=== PATIENT | female | born 1965 | race Caucasian/White ===

== ENCOUNTER 2016-06-18 09:16 | Day surgery (SDC) | payer BC ==
[~2016-06-18] VITALS: Ht 167.6 cm; Wt 74.9 kg
[~2016-06-18 09:16] MED LIST: AZATHIOPRINE50 MG PO; BUDEPRION XL300 MG PO; CALCIUM600 MG PO; CIMZIA200 MG SC; DICYCLOMINE10 MG PO; EFFEXOR XR37.5 MG/CA PO; IBUPROFEN200 M1 PO; LISINOPRIL20 MG PO; LOPID600 MG PO; METOCLOPRAMIDE10 MG PO; PREDNISONE10 MG PO; PRILOSEC 20MG20 MG PO; [UNRECOGNIZED DRUG - OTHER] IJ
[2016-06-18] MEDS ORDERED: IMURAN 50MG TAB50 MG PO (09:40)
[2016-06-18] MEDS ORDERED: CALTRATE-600 W600 MG PO (09:41)
[2016-06-18] MEDS ORDERED: DIGESTIVE PROB1 EACH PO (09:42)
[2016-06-18] MEDS ORDERED: BENTYL 20MG20 MG/TAB PO (09:42)
[2016-06-18] MEDS ORDERED: PRILOTC PO (09:43)
[2016-06-18] MEDS ORDERED: EFFEXOR-XR150 MG PO (09:44)
[2016-06-18] MEDS ORDERED: K-DUR20 MEQ PO (09:45)
[2016-06-18] MEDS ORDERED: VITAMIN B11000 MCG/M IM (09:46)
[2016-06-18] MEDS ORDERED: ZESTRIL 10MG10 MG PO (09:46)
[2016-06-18] MEDS ORDERED: MELATONIN1 MG PO (09:47)
[2016-06-18] MEDS ORDERED: HUMIRA40 MG/0.1 SQ (09:47)
[2016-06-18 10:13] VITALS: BP 120/89; PULSE 72; TEMP 98.3
[2016-06-18 11:00] VITALS: BP 121/79; PULSE 80; TEMP 97.8
[2016-06-18 11:15] VITALS: BP 121/81; PULSE 86
[2016-06-18 11:30] VITALS: BP 114/70; PULSE 86
== END 2016-06-18 12:27 | disposition home or self-care (01) ==
LOC: SDCO 09:16
DX: K50.80 Crohn's disease of both small and large intestine without complications (principal); R19.7 Diarrhea, unspecified; K56.60 Unspecified intestinal obstruction; K21.9 Gastro-esophageal reflux disease without esophagitis; F17.200 Nicotine dependence, unspecified, uncomplicated; Z79.899 Other long term (current) drug therapy; Z86.010 Personal history of colon polyps
CPT/HCPCS: J2250; J3010; J7030

== ENCOUNTER → 2016-08-06 | Outpatient (CLI) | payer BC ==
[~2016-08-06] MED LIST changes: +BENTYL 20MG20 MG/TAB PO; +CALTRATE-600 W600 MG PO; +DIGESTIVE PROB1 EACH PO; +EFFEXOR-XR150 MG PO; +HUMIRA40 MG/0.1 SQ; +IMURAN 50MG TAB50 MG PO; +K-DUR20 MEQ PO; +MELATONIN1 MG PO; +PRILOTC PO; +VITAMIN B11000 MCG/M IM; +ZESTRIL 10MG10 MG PO
[2016-08-06 17:33] LABS: PROMETHEUS COLLECTION NO RESULTS EXPECTED
== END ==
LOC: COL.LAB 16:13
PROVIDERS: Physician Assistant
DX: K50.90 Crohn's disease, unspecified, without complications (principal); R19.7 Diarrhea, unspecified; R10.9 Unspecified abdominal pain

== ENCOUNTER 2017-02-02 13:05 | Outpatient (RCR) | payer BC, OTHER ==
[~2017-02-02] VITALS: Ht 167.6 cm; Wt 75.9 kg
[2017-02-02 13:57] LABS: HEMOGLOBIN 12.4 g/dl (12.5-16.0); MEAN CELL VOLUME 95 fl (80.0-100.0); MEAN CORPUSCULAR HEMOGLOBIN 33 pg (27.0-31.0); MEAN CORPUSCULAR HGB CONC 34 g/dl (33.0-37.0); MEAN PLATELET VOLUME 9.3 fl (7.4-10.4); PLATELET COUNT 270 K/mm3 (130-400); RED BLOOD COUNT 3.82 M/mm3 (4.10-5.30); REDCELL DISTRIBUTION WIDTH-CV 13.2 % (11.5-14.5)
[2017-02-02 14:01] LABS: HEMATOCRIT 36.3 % (37.0-47.0)
[2017-02-02 14:11] LABS: ALBUMIN 4.5 gm/dL (3.5-5.0); BILIRUBIN,TOTAL 0.5 mg/dL (0.0-1.0); CALCIUM 9.6 mg/dL (8.4-10.2); CREATININE, serum 0.77 mg/dL (0.52-1.25); POTASSIUM 4.1 mmol/L (3.4-5.0); TOTAL PROTEIN 7.5 gm/dL (6.4-8.2)
[2017-02-02 14:44] VITALS: BP 110/70; PULSE 55; TEMP 98
[2017-02-02 16:16] VITALS: BP 115/72; PULSE 60; TEMP 98
== END 2017-02-03 08:46 | disposition home or self-care (01) ==
LOC: EUO 13:05
PROVIDERS: Physician Assistant
DX: K51.90 Ulcerative colitis, unspecified, without complications (principal)
CPT/HCPCS: J1200; J2930; J3380; J7050

== ENCOUNTER 2017-03-16 09:30 | Outpatient (RCR) | payer BC, OTHER ==
[2017-02-16 10:59] LABS: HEMOGLOBIN 13.1 g/dl (12.5-16.0); MEAN CELL VOLUME 95 fl (80.0-100.0); MEAN CORPUSCULAR HEMOGLOBIN 32 pg (27.0-31.0); MEAN CORPUSCULAR HGB CONC 34 g/dl (33.0-37.0); MEAN PLATELET VOLUME 9.3 fl (7.4-10.4); PLATELET COUNT 307 K/mm3 (130-400); REDCELL DISTRIBUTION WIDTH-CV 12.8 % (11.5-14.5)
[2017-02-16 11:11] LABS: ALBUMIN 4.9 gm/dL (3.5-5.0); BILIRUBIN,TOTAL 0.4 mg/dL (0.0-1.0); CALCIUM 10.4 mg/dL (8.4-10.2); CREATININE, serum 0.72 mg/dL (0.52-1.25); POTASSIUM 4.7 mmol/L (3.4-5.0)
[2017-02-16 11:25] VITALS: BP 125/73; PULSE 76; TEMP 98.6
[~2017-03-16] VITALS: Ht 167.6 cm; Wt 75.8 kg
[~2017-03-16 09:30] MED LIST changes: +ADVIL200 MG PO; -IBUPROFEN200 M1 PO; -LISINOPRIL20 MG PO; -METOCLOPRAMIDE10 MG PO; +REGLAN 10MG10 MG/TAB PO; +ZESTRIL 20MG TA20 MG PO
[2017-03-16 10:00] LABS: HEMATOCRIT 38.3 % (37.0-47.0); HEMOGLOBIN 13.1 g/dl (12.5-16.0); MEAN CELL VOLUME 94 fl (80.0-100.0); MEAN CORPUSCULAR HEMOGLOBIN 32 pg (27.0-31.0); MEAN CORPUSCULAR HGB CONC 34 g/dl (33.0-37.0); MEAN PLATELET VOLUME 9.5 fl (7.4-10.4); PLATELET COUNT 282 K/mm3 (130-400); RED BLOOD COUNT 4.07 M/mm3 (4.10-5.30); REDCELL DISTRIBUTION WIDTH-CV 13.1 % (11.5-14.5)
[2017-03-16 10:09] LABS: ALBUMIN 4.7 gm/dL (3.5-5.0); BILIRUBIN,TOTAL 0.4 mg/dL (0.0-1.0); CALCIUM 9.8 mg/dL (8.4-10.2); CREATININE, serum 0.87 mg/dL (0.52-1.25); POTASSIUM 4.6 mmol/L (3.4-5.0); TOTAL PROTEIN 7.9 gm/dL (6.4-8.2)
[2017-03-16 10:37] VITALS: BP 128/80; PULSE 72; TEMP 98.2
== END 2017-03-16 11:49 | disposition home or self-care (01) ==
LOC: EUO 09:30
PROVIDERS: Physician Assistant
DX: K51.90 Ulcerative colitis, unspecified, without complications (principal); Z79.899 Other long term (current) drug therapy
CPT/HCPCS: J1200; J2920; J2930; J3380; J7050

== ENCOUNTER 2017-05-11 09:38 | Outpatient (CLI) | payer BC, OTHER ==
[~2017-05-11] VITALS: Ht 167.6 cm; Wt 75.5 kg
[~2017-05-11 09:38] MED LIST changes: +BENTYL 10MG10 MG/CAP PO; -BUDEPRION XL300 MG PO; -DICYCLOMINE10 MG PO; +WELLBUTRIN XL300 M1 PO
[2017-05-11 10:05] VITALS: BP 116/83; PULSE 72; TEMP 98.8
[2017-05-11 10:19] LABS: HEMATOCRIT 42.8 % (37.0-47.0); HEMOGLOBIN 14.6 g/dl (12.5-16.0); MEAN CELL VOLUME 94 fl (80.0-100.0); MEAN CORPUSCULAR HEMOGLOBIN 32 pg (27.0-31.0); MEAN CORPUSCULAR HGB CONC 34 g/dl (33.0-37.0); MEAN PLATELET VOLUME 9.6 fl (7.4-10.4); PLATELET COUNT 273 K/mm3 (130-400); RED BLOOD COUNT 4.55 M/mm3 (4.10-5.30); REDCELL DISTRIBUTION WIDTH-CV 12.9 % (11.5-14.5)
[2017-05-11] MEDS ORDERED: K-DUR20 MEQ PO (10:19)
[2017-05-11] MEDS ORDERED: ULTRAM 50MG TAB50 MG PO (10:20)
[2017-05-11 10:21] LABS: ALBUMIN 4.7 gm/dL (3.5-5.0); BILIRUBIN,TOTAL 0.4 mg/dL (0.0-1.0); CALCIUM 9.8 mg/dL (8.4-10.2); CREATININE, serum 0.7 mg/dL (0.52-1.25); POTASSIUM 4.3 mmol/L (3.4-5.0); TOTAL PROTEIN 8.1 gm/dL (6.4-8.2)
[2017-05-11] MEDS ORDERED: RISPERDAL 0.5M0.5 MG PO (10:22)
== END 2017-05-11 11:50 | disposition home or self-care (01) ==
LOC: EUO 09:38
PROVIDERS: Physician Assistant
DX: K51.90 Ulcerative colitis, unspecified, without complications (principal); Z79.899 Other long term (current) drug therapy
CPT/HCPCS: J1200; J2930; J3380; J7050

== ENCOUNTER 2017-07-06 11:27 | Outpatient (CLI) | payer BC, OTHER ==
[~2017-07-06] VITALS: Ht 167.6 cm; Wt 75.0 kg
[~2017-07-06 11:27] MED LIST changes: +RISPERDAL 0.5M0.5 MG PO; +ULTRAM 50MG TAB50 MG PO
[2017-07-06 11:56] LABS: HEMATOCRIT 39.4 % (37.0-47.0); HEMOGLOBIN 13.3 g/dl (12.5-16.0); MEAN CELL VOLUME 95 fl (80.0-100.0); MEAN CORPUSCULAR HEMOGLOBIN 32 pg (27.0-31.0); MEAN CORPUSCULAR HGB CONC 34 g/dl (33.0-37.0); MEAN PLATELET VOLUME 9.8 fl (7.4-10.4); PLATELET COUNT 301 K/mm3 (130-400); RED BLOOD COUNT 4.14 M/mm3 (4.10-5.30); REDCELL DISTRIBUTION WIDTH-CV 13.3 % (11.5-14.5)
[2017-07-06 12:14] LABS: ALBUMIN 4.4 gm/dL (3.5-5.0); BILIRUBIN,TOTAL 0.6 mg/dL (0.0-1.0); CALCIUM 9.9 mg/dL (8.4-10.2); CREATININE, serum 0.71 mg/dL (0.52-1.25); POTASSIUM 3.7 mmol/L (3.4-5.0); TOTAL PROTEIN 8.6 gm/dL (6.4-8.2)
[2017-07-06] MEDS ORDERED: PRISTIQ100 MG PO (13:36)
[2017-07-06] MEDS ORDERED: COLESTID 1GM1 G PO (13:37)
[2017-07-06 13:41] VITALS: BP 133/77; PULSE 81; TEMP 98.3
== END 2017-07-06 14:06 | disposition home or self-care (01) ==
LOC: EUO 11:27
PROVIDERS: Physician Assistant
DX: K51.90 Ulcerative colitis, unspecified, without complications (principal)
CPT/HCPCS: J1200; J2920; J3380; J7050

== ENCOUNTER 2017-08-31 11:14 | Outpatient (CLI) | payer BC, OTHER ==
[~2017-08-31] VITALS: Ht 167.6 cm; Wt 79.0 kg
[~2017-08-31 11:14] MED LIST changes: +COLESTID 1GM1 G PO; +PRISTIQ100 MG PO
[2017-08-31 12:11] LABS: MEAN CELL VOLUME 93 fl (80.0-100.0); MEAN CORPUSCULAR HEMOGLOBIN 32 pg (27.0-31.0); MEAN CORPUSCULAR HGB CONC 35 g/dl (33.0-37.0); MEAN PLATELET VOLUME 9.3 fl (7.4-10.4); PLATELET COUNT 271 K/mm3 (130-400); REDCELL DISTRIBUTION WIDTH-CV 13.7 % (11.5-14.5)
[2017-08-31 12:18] LABS: HEMATOCRIT 34.5 % (37.0-47.0)
[2017-08-31 12:24] LABS: ALBUMIN 3.9 gm/dL (3.5-5.0); BILIRUBIN,TOTAL 0.3 mg/dL (0.0-1.0); CALCIUM 9.1 mg/dL (8.4-10.2); CREATININE, serum 0.64 mg/dL (0.52-1.25); POTASSIUM 3.2 mmol/L (3.4-5.0); TOTAL PROTEIN 6.7 gm/dL (6.4-8.2)
[2017-08-31] MEDS ORDERED: MAG-OX 400400 MG/TAB PO (12:48)
[2017-08-31] MEDS ORDERED: ZOFRAN ODT8 MG PO (12:49)
[2017-08-31 13:00] VITALS: BP 134/83; PULSE 65; TEMP 98.9
== END 2017-08-31 13:47 | disposition home or self-care (01) ==
LOC: EUO 11:14
PROVIDERS: Physician Assistant
DX: K51.90 Ulcerative colitis, unspecified, without complications (principal)
CPT/HCPCS: J1200; J2930; J3380; J7050

== ENCOUNTER 2017-10-07 07:11 | Day surgery (SDC) | payer BC ==
[~2017-10-07] VITALS: Ht 167.6 cm; Wt 78.1 kg
[~2017-10-07 07:11] MED LIST changes: +MAG-OX 400400 MG/TAB PO; +ZOFRAN ODT8 MG PO
[2017-10-07] MEDS ORDERED: TYLENOL 500MG500 MG PO (07:37)
[2017-10-07] MEDS ORDERED: COLESTID 1GM1 G PO (07:37)
[2017-10-07] MEDS ORDERED: ENTYVIO (07:38)
[2017-10-07 07:44] VITALS: BP 143/96; PULSE 76; TEMP 97.7
[2017-10-07 08:20] VITALS: BP 127/78; PULSE 78; TEMP 97
[2017-10-07 08:30] VITALS: BP 120/85; PULSE 81
[2017-10-07 08:45] VITALS: BP 115/89; PULSE 76
[2017-10-07 09:00] VITALS: BP 127/80; PULSE 78
[2017-10-07 10:48] VITALS: BP 127/78; PULSE 80
== END 2017-10-07 09:05 | disposition home or self-care (01) ==
LOC: SDCO 07:11
DX: K63.5 Polyp of colon (principal); K50.80 Crohn's disease of both small and large intestine without complications; R93.3 Abnormal findings on diagnostic imaging of other parts of digestive tract; Z79.899 Other long term (current) drug therapy; F17.210 Nicotine dependence, cigarettes, uncomplicated
CPT/HCPCS: J2250; J2405; J3010; J7030

== ENCOUNTER 2017-12-21 10:25 | Outpatient (CLI) | payer BC, OTHER ==
[~2017-12-21] VITALS: Ht 167.6 cm; Wt 80.0 kg
[~2017-12-21 10:25] MED LIST changes: +ENTOCORT EC3 MG PO; +ENTYVIO IV; +TYLENOL 500MG500 MG PO
[2017-12-21 10:53] VITALS: BP 159/88; PULSE 63; TEMP 98.2
[2017-12-21 10:59] LABS: HEMATOCRIT 39.7 % (37.0-47.0); HEMOGLOBIN 13.3 g/dl (12.5-16.0); MEAN CELL VOLUME 95 fl (80.0-100.0); MEAN CORPUSCULAR HEMOGLOBIN 32 pg (27.0-31.0); MEAN CORPUSCULAR HGB CONC 34 g/dl (33.0-37.0); MEAN PLATELET VOLUME 9.3 fl (7.4-10.4); PLATELET COUNT 297 K/mm3 (130-400); RED BLOOD COUNT 4.19 M/mm3 (4.10-5.30); REDCELL DISTRIBUTION WIDTH-CV 13.2 % (11.5-14.5)
[2017-12-21 11:16] LABS: ALBUMIN 4.5 gm/dL (3.5-5.0); BILIRUBIN,TOTAL 0.6 mg/dL (0.0-1.0); CALCIUM 9.6 mg/dL (8.4-10.2); CREATININE, serum 0.67 mg/dL (0.52-1.25); POTASSIUM 3.9 mmol/L (3.4-5.0); TOTAL PROTEIN 7.8 gm/dL (6.4-8.2)
[2017-12-21 12:05] VITALS: BP 168/88; PULSE 90
[2017-12-21 12:15] VITALS: BP 164/89; PULSE 64
[2017-12-21 12:25] VITALS: BP 157/88; PULSE 69
[2017-12-21 12:35] VITALS: BP 158/86; PULSE 67
== END 2017-12-21 13:00 | disposition home or self-care (01) ==
LOC: EUO 10:25
PROVIDERS: Physician Assistant
DX: K51.90 Ulcerative colitis, unspecified, without complications (principal); Z79.899 Other long term (current) drug therapy
CPT/HCPCS: J1200; J2920; J3380; J7050

== ENCOUNTER 2018-02-15 11:02 | Outpatient (CLI) | payer BC, OTHER ==
[~2018-02-15] VITALS: Ht 167.6 cm; Wt 80.0 kg
[2018-02-15 11:32] LABS: HEMATOCRIT 40.6 % (37.0-47.0); HEMOGLOBIN 13.8 g/dl (12.5-16.0); MEAN CELL VOLUME 93 fl (80.0-100.0); MEAN CORPUSCULAR HEMOGLOBIN 31 pg (27.0-31.0); MEAN CORPUSCULAR HGB CONC 34 g/dl (33.0-37.0); MEAN PLATELET VOLUME 9.5 fl (7.4-10.4); PLATELET COUNT 327 K/mm3 (130-400); RED BLOOD COUNT 4.39 M/mm3 (4.10-5.30); REDCELL DISTRIBUTION WIDTH-CV 12.9 % (11.5-14.5)
[2018-02-15 11:42] LABS: ALBUMIN 4.6 gm/dL (3.5-5.0); BILIRUBIN,TOTAL 0.6 mg/dL (0.0-1.0); CALCIUM 9.8 mg/dL (8.4-10.2); CREATININE, serum 0.75 mg/dL (0.52-1.25); POTASSIUM 3.9 mmol/L (3.4-5.0)
[2018-02-15 13:09] VITALS: BP 149/93; PULSE 68; TEMP 98.1
[2018-02-15 13:20] VITALS: BP 144/69; PULSE 74
[2018-02-15 13:30] VITALS: BP 143/73; PULSE 82
[2018-02-15 13:40] VITALS: BP 136/71; PULSE 86
== END 2018-02-15 15:06 | disposition home or self-care (01) ==
LOC: EUO 11:02
PROVIDERS: Physician Assistant
DX: K51.90 Ulcerative colitis, unspecified, without complications (principal); Z79.899 Other long term (current) drug therapy
CPT/HCPCS: J1200; J2920; J3380; J7050

== ENCOUNTER 2018-04-12 12:43 | Outpatient (CLI) | payer BC, OTHER ==
[~2018-04-12] VITALS: Ht 167.6 cm; Wt 81.1 kg
[2018-04-12 13:08] LABS: HEMATOCRIT 37.6 % (37.0-47.0); HEMOGLOBIN 12.8 g/dl (12.5-16.0); MEAN CELL VOLUME 93 fl (80.0-100.0); MEAN CORPUSCULAR HEMOGLOBIN 32 pg (27.0-31.0); MEAN CORPUSCULAR HGB CONC 34 g/dl (33.0-37.0); MEAN PLATELET VOLUME 9.5 fl (7.4-10.4); PLATELET COUNT 283 K/mm3 (130-400); RED BLOOD COUNT 4.06 M/mm3 (4.10-5.30); REDCELL DISTRIBUTION WIDTH-CV 13.2 % (11.5-14.5)
[2018-04-12 13:19] LABS: ALBUMIN 4.2 gm/dL (3.5-5.0); BILIRUBIN,TOTAL 0.3 mg/dL (0.0-1.0); CALCIUM 9.4 mg/dL (8.4-10.2); CREATININE, serum 0.65 mg/dL (0.52-1.25); POTASSIUM 3.6 mmol/L (3.4-5.0); TOTAL PROTEIN 7.4 gm/dL (6.4-8.2)
--- NOTE | 2018-04-12 13:19 | NUR ---
Per pt report she has had hysterectomy,HCG lab cancelled.
[2018-04-12] MEDS ORDERED: REXULTI0.5 MG PO (13:30)
[2018-04-12 13:41] VITALS: BP 130/83; PULSE 73; TEMP 98.1
== END 2018-04-12 15:20 | disposition home or self-care (01) ==
LOC: EUO 12:43
PROVIDERS: Internal Medicine Gastroenterology
DX: K50.90 Crohn's disease, unspecified, without complications (principal); Z79.899 Other long term (current) drug therapy
CPT/HCPCS: J1200; J2920; J3380; J7050

== ENCOUNTER 2018-06-07 12:54 | Outpatient (CLI) | payer BC, OTHER ==
[~2018-06-07] VITALS: Ht 167.6 cm; Wt 81.7 kg
[~2018-06-07 12:54] MED LIST changes: +REXULTI0.5 MG PO
[2018-06-07 13:26] LABS: HEMATOCRIT 37.3 % (37.0-47.0); HEMOGLOBIN 12.8 g/dl (12.5-16.0); MEAN CELL VOLUME 93 fl (80.0-100.0); MEAN CORPUSCULAR HEMOGLOBIN 32 pg (27.0-31.0); MEAN CORPUSCULAR HGB CONC 34 g/dl (33.0-37.0); MEAN PLATELET VOLUME 9.5 fl (7.4-10.4); PLATELET COUNT 279 K/mm3 (130-400); RED BLOOD COUNT 4.01 M/mm3 (4.10-5.30); REDCELL DISTRIBUTION WIDTH-CV 13.2 % (11.5-14.5)
[2018-06-07 13:34] LABS: ALBUMIN 4.5 gm/dL (3.5-5.0); BILIRUBIN,TOTAL 0.5 mg/dL (0.0-1.0); CALCIUM 9.8 mg/dL (8.4-10.2); CREATININE, serum 0.69 (0.52-1.25); POTASSIUM 3.6 mmol/L (3.4-5.0); TOTAL PROTEIN 7.9 gm/dL (6.4-8.2)
[2018-06-07 14:41] VITALS: BP 112/74; PULSE 65; TEMP 98.3
== END 2018-06-07 15:23 | disposition home or self-care (01) ==
LOC: EUO 12:54
PROVIDERS: Internal Medicine Gastroenterology
DX: K51.90 Ulcerative colitis, unspecified, without complications (principal); Z79.899 Other long term (current) drug therapy
CPT/HCPCS: J1200; J2920; J3380; J7050

== ENCOUNTER 2018-08-02 13:10 | Outpatient (CLI) | payer BC, OTHER ==
[~2018-08-02] VITALS: Ht 167.6 cm; Wt 71.0 kg
[2018-08-02 13:38] LABS: HEMATOCRIT 42.4 % (37.0-47.0); HEMOGLOBIN 14.5 g/dl (12.5-16.0); MEAN CELL VOLUME 92 fl (80.0-100.0); MEAN CORPUSCULAR HEMOGLOBIN 32 pg (27.0-31.0); MEAN CORPUSCULAR HGB CONC 34 g/dl (33.0-37.0); MEAN PLATELET VOLUME 9.3 fl (7.4-10.4); PLATELET COUNT 290 K/mm3 (130-400); RED BLOOD COUNT 4.59 M/mm3 (4.10-5.30); REDCELL DISTRIBUTION WIDTH-CV 13.2 % (11.5-14.5)
[2018-08-02 13:55] LABS: ALBUMIN 4.9 gm/dL (3.5-5.0); BILIRUBIN,TOTAL 0.6 mg/dL (0.0-1.0); CREATININE, serum 0.72 (0.52-1.25); POTASSIUM 3.9 mmol/L (3.4-5.0); TOTAL PROTEIN 8.9 gm/dL (6.4-8.2)
[2018-08-02 14:11] VITALS: BP 112/79; PULSE 71; TEMP 98.9
== END 2018-08-02 15:49 | disposition home or self-care (01) ==
LOC: EUO 13:10
PROVIDERS: Internal Medicine Gastroenterology
DX: K51.90 Ulcerative colitis, unspecified, without complications (principal); Z79.899 Other long term (current) drug therapy
CPT/HCPCS: J1200; J2920; J3380; J7050

== ENCOUNTER 2018-09-27 11:14 | Outpatient (CLI) | payer BC, OTHER ==
[~2018-09-27] VITALS: Ht 167.6 cm; Wt 76.7 kg
[2018-09-27 11:45] VITALS: BP 126/76; PULSE 69; TEMP 98
[2018-09-27 12:00] LABS: ALBUMIN 4.5 gm/dL (3.5-5.0); BILIRUBIN,TOTAL 0.5 mg/dL (0.0-1.0); CALCIUM 9.6 mg/dL (8.4-10.2); CREATININE, serum 0.74 (0.52-1.25); TOTAL PROTEIN 7.8 gm/dL (6.4-8.2)
[2018-09-27] MEDS ORDERED: PRINIVIL20 MG PO (12:26)
[2018-09-27] MEDS ORDERED: PRILOSEC10 MG PO (12:27)
[2018-09-27 12:28] LABS: HEMATOCRIT 39.4 % (37.0-47.0); HEMOGLOBIN 13.5 g/dl (12.5-16.0); MEAN CELL VOLUME 94 fl (80.0-100.0); MEAN CORPUSCULAR HEMOGLOBIN 32 pg (27.0-31.0); MEAN CORPUSCULAR HGB CONC 34 g/dl (33.0-37.0); MEAN PLATELET VOLUME 9.5 fl (7.4-10.4); PLATELET COUNT 284 K/mm3 (130-400); RED BLOOD COUNT 4.19 M/mm3 (4.10-5.30); REDCELL DISTRIBUTION WIDTH-CV 12.8 % (11.5-14.5)
[2018-09-27] MEDS ORDERED: PAMELOR 25MG25 MG PO (12:31)
[2018-09-27 12:50] VITALS: BP 117/84; PULSE 69; TEMP 98
[2018-09-27 13:00] VITALS: BP 121/77; PULSE 69; TEMP 98
[2018-09-27 13:10] VITALS: BP 115/80; PULSE 67; TEMP 98
[2018-09-27 13:20] VITALS: BP 115/68; PULSE 72; TEMP 98
[2018-09-27 13:25] VITALS: BP 118/73; PULSE 72; TEMP 98
--- NOTE | 2018-09-27 13:30 | NUR ---
Patients infusion is complete at this time. Patient has no complaints or concerns. Vital signs are stable. Next appointment made at this time. Patient's at bedside to drive her home.
== END 2018-09-27 13:30 ==
LOC: EUO 11:14
PROVIDERS: Internal Medicine Gastroenterology
DX: K50.90 Crohn's disease, unspecified, without complications (principal); Z79.899 Other long term (current) drug therapy
CPT/HCPCS: J1200; J2930; J3380; J7050

== ENCOUNTER 2018-11-22 11:44 | Outpatient (CLI) | payer BC, OTHER ==
[~2018-11-22] VITALS: Ht 167.6 cm; Wt 79.0 kg
[~2018-11-22 11:44] MED LIST changes: +PAMELOR 25MG25 MG PO; +PRILOSEC10 MG PO; +PRINIVIL20 MG PO
[2018-11-22] MEDS ORDERED: ABILIFY 10MG TA10 MG PO (12:00)
[2018-11-22 12:01] LABS: HEMATOCRIT 41.2 % (37.0-47.0); HEMOGLOBIN 13.9 g/dl (12.5-16.0); MEAN CELL VOLUME 94 fl (80.0-100.0); MEAN CORPUSCULAR HEMOGLOBIN 32 pg (27.0-31.0); MEAN CORPUSCULAR HGB CONC 34 g/dl (33.0-37.0); MEAN PLATELET VOLUME 8.9 fl (7.4-10.4); PLATELET COUNT 338 K/mm3 (130-400); RED BLOOD COUNT 4.39 M/mm3 (4.10-5.30); REDCELL DISTRIBUTION WIDTH-CV 12.6 % (11.5-14.5)
[2018-11-22 12:15] LABS: ALBUMIN 4.9 gm/dL (3.5-5.0); BILIRUBIN,TOTAL 0.3 mg/dL (0.0-1.0); CALCIUM 9.7 mg/dL (8.4-10.2); CREATININE, serum 0.61 (0.52-1.25); POTASSIUM 4.1 mmol/L (3.4-5.0); TOTAL PROTEIN 8.3 gm/dL (6.4-8.2)
[2018-11-22 13:40] VITALS: BP 116/67; PULSE 80; TEMP 97.9
[2018-11-22 14:19] VITALS: BP 129/75; PULSE 72; TEMP 98.2
== END 2018-11-22 14:25 | disposition home or self-care (01) ==
LOC: EUO 11:44
PROVIDERS: Internal Medicine Gastroenterology
DX: K51.90 Ulcerative colitis, unspecified, without complications (principal)
CPT/HCPCS: J2930; J3380; J7050

== ENCOUNTER 2019-01-25 09:24 | Outpatient (CLI) | payer BC, OTHER ==
[~2019-01-25 09:24] MED LIST changes: +ABILIFY 10MG TA10 MG PO
[2019-01-25 09:51] LABS: HEMATOCRIT 40.4 % (37.0-47.0); HEMOGLOBIN 13.8 g/dl (12.5-16.0); MEAN CELL VOLUME 94 fl (80.0-100.0); MEAN CORPUSCULAR HEMOGLOBIN 32 pg (27.0-31.0); MEAN CORPUSCULAR HGB CONC 34 g/dl (33.0-37.0); PLATELET COUNT 298 K/mm3 (130-400); RED BLOOD COUNT 4.29 M/mm3 (4.10-5.30); REDCELL DISTRIBUTION WIDTH-CV 13.6 % (11.5-14.5)
[2019-01-25 10:00] LABS: ALBUMIN 4.7 gm/dL (3.5-5.0); BILIRUBIN,TOTAL 0.3 mg/dL (0.0-1.0); CALCIUM 9.5 mg/dL (8.4-10.2); CREATININE, serum 0.7 (0.52-1.25); POTASSIUM 4.1 mmol/L (3.4-5.0); TOTAL PROTEIN 8.1 gm/dL (6.4-8.2)
[2019-01-25 11:00] VITALS: BP 133/84; PULSE 71; TEMP 97.9
[2019-01-25 11:10] VITALS: BP 123/83; PULSE 69
[2019-01-25 11:20] VITALS: BP 127/78; PULSE 75
[2019-01-25 11:30] VITALS: BP 112/72; PULSE 70; TEMP 98.2
== END 2019-01-25 11:55 | disposition home or self-care (01) ==
LOC: EUO 09:24
PROVIDERS: Internal Medicine Gastroenterology
DX: K51.90 Ulcerative colitis, unspecified, without complications (principal); Z79.899 Other long term (current) drug therapy
CPT/HCPCS: J1200; J2920; J3380; J7050

== ENCOUNTER 2019-03-22 11:07 | Outpatient (CLI) | payer BC, OTHER ==
[~2019-03-22] VITALS: Ht 167.6 cm; Wt 84.8 kg
[2019-03-22 11:32] LABS: HEMATOCRIT 38.3 % (37.0-47.0); HEMOGLOBIN 13.1 g/dl (12.5-16.0); MEAN CELL VOLUME 94 fl (80.0-100.0); MEAN CORPUSCULAR HEMOGLOBIN 32 pg (27.0-31.0); MEAN CORPUSCULAR HGB CONC 34 g/dl (33.0-37.0); MEAN PLATELET VOLUME 9.1 fl (7.4-10.4); PLATELET COUNT 283 K/mm3 (130-400); RED BLOOD COUNT 4.07 M/mm3 (4.10-5.30); REDCELL DISTRIBUTION WIDTH-CV 13.5 % (11.5-14.5)
[2019-03-22 11:54] LABS: ALBUMIN 4.8 gm/dL (3.5-5.0); BILIRUBIN,TOTAL 0.4 mg/dL (0.0-1.0); CALCIUM 9.6 mg/dL (8.4-10.2); CREATININE, serum 0.67 (0.52-1.25); POTASSIUM 4.7 mmol/L (3.4-5.0); TOTAL PROTEIN 8.1 gm/dL (6.4-8.2)
[2019-03-22 12:45] VITALS: BP 123/71; PULSE 65; TEMP 98.1
[2019-03-22 13:15] VITALS: BP 119/71; PULSE 66; TEMP 98.1
== END 2019-03-22 13:50 | disposition home or self-care (01) ==
LOC: EUO 11:07
PROVIDERS: Internal Medicine Gastroenterology
DX: K51.90 Ulcerative colitis, unspecified, without complications (principal); Z79.899 Other long term (current) drug therapy
CPT/HCPCS: J1200; J2920; J3380; J7050

== ENCOUNTER 2019-07-12 11:16 | Outpatient (CLI) | payer BC, OTHER ==
[~2019-07-12] VITALS: Ht 167.6 cm; Wt 87.0 kg
[~2019-07-12 11:16] MED LIST changes: +CHANTIX 1MG1 MG PO; +OSCAL 500 TAB500 MG PO; +REMERON 15M15 MG/TA1 PO; +VIIBRYD40 MG PO
[2019-07-12 11:59] LABS: HEMATOCRIT 39.2 % (37.0-47.0); HEMOGLOBIN 13.5 g/dl (12.5-16.0); MEAN CELL VOLUME 94 fl (80.0-100.0); MEAN CORPUSCULAR HEMOGLOBIN 33 pg (27.0-31.0); MEAN CORPUSCULAR HGB CONC 34 g/dl (33.0-37.0); MEAN PLATELET VOLUME 9.1 fl (7.4-10.4); PLATELET COUNT 280 K/mm3 (130-400); RED BLOOD COUNT 4.16 M/mm3 (4.10-5.30); REDCELL DISTRIBUTION WIDTH-CV 13.2 % (11.5-14.5)
[2019-07-12 12:14] LABS: ALBUMIN 4.8 gm/dL (3.5-5.0); BILIRUBIN,TOTAL 0.5 mg/dL (0.0-1.0); CALCIUM 9.8 mg/dL (8.4-10.2); CREATININE, serum 0.73 (0.52-1.25); POTASSIUM 4.6 mmol/L (3.4-5.0); TOTAL PROTEIN 8.4 gm/dL (6.4-8.2)
[2019-07-12 13:00] VITALS: BP 128/77; PULSE 77; TEMP 98.2
== END 2019-07-16 17:50 | disposition home or self-care (01) ==
LOC: EUO 11:16
PROVIDERS: Internal Medicine Gastroenterology
DX: K51.90 Ulcerative colitis, unspecified, without complications (principal); Z79.899 Other long term (current) drug therapy
CPT/HCPCS: J1200; J2920; J3380; J7050

== ENCOUNTER 2019-09-06 11:28 | Outpatient (CLI) | payer BC, OTHER ==
[2019-09-06 11:55] LABS: HEMATOCRIT 39.7 % (37.0-47.0); HEMOGLOBIN 13.9 g/dl (12.5-16.0); MEAN CELL VOLUME 94 fl (80.0-100.0); MEAN CORPUSCULAR HEMOGLOBIN 33 pg (27.0-31.0); MEAN CORPUSCULAR HGB CONC 35 g/dl (33.0-37.0); PLATELET COUNT 311 K/mm3 (130-400); RED BLOOD COUNT 4.24 M/mm3 (4.10-5.30); REDCELL DISTRIBUTION WIDTH-CV 13.7 % (11.5-14.5)
[2019-09-06] MEDS ORDERED: BRINTELLIX20 PO (12:06)
[2019-09-06 12:07] VITALS: BP 117/75; PULSE 69; TEMP 98.4
[2019-09-06] MEDS ORDERED: VRAYLAR1.5 MG PO (12:07)
[2019-09-06 12:12] LABS: ALBUMIN 4.8 gm/dL (3.5-5.0); BILIRUBIN,TOTAL 0.7 mg/dL (0.0-1.0); CALCIUM 9.8 mg/dL (8.4-10.2); CREATININE, serum 0.76 (0.52-1.25); POTASSIUM 3.9 mmol/L (3.4-5.0); TOTAL PROTEIN 8.3 gm/dL (6.4-8.2)
[2019-09-06 13:06] VITALS: BP 115/68; PULSE 65; TEMP 98.5
[2019-09-06 13:15] VITALS: BP 111/70; PULSE 69
[2019-09-06 13:30] VITALS: BP 107/69; PULSE 65
[2019-09-06 13:40] VITALS: BP 116/75; PULSE 74; TEMP 98.5
== END 2019-09-06 14:00 | disposition home or self-care (01) ==
LOC: EUO 11:28
PROVIDERS: Internal Medicine Gastroenterology
DX: K51.90 Ulcerative colitis, unspecified, without complications (principal); Z79.899 Other long term (current) drug therapy
CPT/HCPCS: J1200; J2930; J3380; J7050

== ENCOUNTER 2019-11-01 10:53 | Outpatient (CLI) | payer BC, OTHER ==
[~2019-11-01] VITALS: Ht 170.2 cm; Wt 88.2 kg
[~2019-11-01 10:53] MED LIST changes: +BRINTELLIX20 PO; +VRAYLAR1.5 MG PO
[2019-11-01 11:44] LABS: HEMOGLOBIN 13.7 g/dl (12.5-16.0); MEAN CELL VOLUME 94 fl (80.0-100.0); MEAN CORPUSCULAR HEMOGLOBIN 33 pg (27.0-31.0); MEAN CORPUSCULAR HGB CONC 35 g/dl (33.0-37.0); MEAN PLATELET VOLUME 9.4 fl (7.4-10.4); PLATELET COUNT 302 K/mm3 (130-400); RED BLOOD COUNT 4.16 M/mm3 (4.10-5.30); REDCELL DISTRIBUTION WIDTH-CV 13.3 % (11.5-14.5)
[2019-11-01 11:52] LABS: ALBUMIN 4.8 gm/dL (3.5-5.0); BILIRUBIN,TOTAL 0.5 mg/dL (0.0-1.0); CALCIUM 9.7 mg/dL (8.4-10.2); CREATININE, serum 0.79 (0.52-1.25); POTASSIUM 4.2 mmol/L (3.4-5.0); TOTAL PROTEIN 8.1 gm/dL (6.4-8.2)
[2019-11-01 11:55] VITALS: BP 104/69; PULSE 74; TEMP 98.3
[2019-11-01 12:45] VITALS: BP 113/68; PULSE 69
[2019-11-01 12:50] VITALS: BP 115/75; PULSE 66
[2019-11-01 13:00] VITALS: BP 112/71; PULSE 66
[2019-11-01 13:11] VITALS: BP 116/68; PULSE 66
== END 2019-11-01 14:56 | disposition home or self-care (01) ==
LOC: EUO 10:53
PROVIDERS: Internal Medicine Gastroenterology
DX: K51.90 Ulcerative colitis, unspecified, without complications (principal); Z79.899 Other long term (current) drug therapy
CPT/HCPCS: J1200; J2930; J3380; J7050

== ENCOUNTER 2019-11-23 08:09 | Day surgery (SDC) | payer BC ==
[~2019-11-23] VITALS: Ht 168.9 cm; Wt 84.7 kg
[2019-11-23 08:58] VITALS: BP 143/97; PULSE 110; TEMP 97.8
[2019-11-23] MEDS ORDERED: DESYREL 50MG50 MG PO (09:08)
[2019-11-23 09:45] VITALS: BP 126/77; PULSE 91
--- NOTE | 2019-11-23 09:45 | NUR ---
Patient brought back to [facility] via cart ambulated to chair with one assist. Placed on monitors, vital signs stable. Patient denies pain or nausea. Odalys RN at bedside for report, all questions answered. IV infusing to right wrist without difficulty. Warm blanket provided. Patient states she would like toast and sprite.
[2019-11-23 10:00] VITALS: BP 125/85; PULSE 87
--- NOTE | 2019-11-23 10:00 | NUR ---
Tolerated food and drink without difficulty. Denies nausea. is in parking lot. To be called upon discharge to drive Patient home. Will continue to monitor.
[2019-11-23 10:15] VITALS: BP 127/86; PULSE 93
--- NOTE | 2019-11-23 10:15 | NUR ---
Patient states she is feeling well enought to go home. MD at bedside to explain results.
--- NOTE | 2019-11-23 10:20 | NUR ---
IV removed from right hand without difficulty, intact. Discharge instructions reviewed with patient. made aware to pull up to patient entrance. Patient to get dressed at this time.
--- NOTE | 2019-11-23 10:30 | NUR ---
Patient brought down to lobby via wheel chair. to drive patient home. All belongings in hand.
== END 2019-11-23 10:30 | disposition home or self-care (01) ==
LOC: SDCO 08:09
DX: Z12.11 Encounter for screening for malignant neoplasm of colon (principal); K50.819 Crohn's disease of both small and large intestine with unspecified complications; K63.5 Polyp of colon; Z88.1 Allergy status to other antibiotic agents; Z88.8 Allergy status to other drugs, medicaments and biological substances; Z90.49 Acquired absence of other specified parts of digestive tract; F17.210 Nicotine dependence, cigarettes, uncomplicated; Z90.710 Acquired absence of both cervix and uterus; I10 Essential (primary) hypertension; J44.9 Chronic obstructive pulmonary disease, unspecified; K21.9 Gastro-esophageal reflux disease without esophagitis
CPT/HCPCS: J2704; J7030

== ENCOUNTER 2020-02-21 11:05 | Outpatient (CLI) | payer BC ==
[~2020-02-21] VITALS: Ht 170.2 cm; Wt 82.7 kg
[~2020-02-21 11:05] MED LIST changes: +CHANTIX START M1 TAB PO; +DESYREL 50MG50 MG PO
[2020-02-21 11:43] LABS: HEMATOCRIT 38.4 % (37.0-47.0); HEMOGLOBIN 13.3 g/dl (12.5-16.0); MEAN CELL VOLUME 90 fl (80.0-100.0); MEAN CORPUSCULAR HEMOGLOBIN 31 pg (27.0-31.0); MEAN CORPUSCULAR HGB CONC 35 g/dl (33.0-37.0); MEAN PLATELET VOLUME 9.5 fl (7.4-10.4); PLATELET COUNT 257 K/mm3 (130-400); RED BLOOD COUNT 4.29 M/mm3 (4.10-5.30); REDCELL DISTRIBUTION WIDTH-CV 13.1 % (11.5-14.5)
[2020-02-21 11:49] LABS: ALBUMIN 4.5 gm/dL (3.5-5.0); BILIRUBIN,TOTAL 0.6 mg/dL (0.0-1.0); CALCIUM 9.4 mg/dL (8.4-10.2); CREATININE, serum 0.82 (0.52-1.25); POTASSIUM 3.6 mmol/L (3.4-5.0); TOTAL PROTEIN 7.4 gm/dL (6.4-8.2)
[2020-02-21] MEDS ORDERED: WELLBUTRIN 100100 MG PO (12:46)
[2020-02-21 12:51] VITALS: BP 119/79; PULSE 64; TEMP 99.1
[2020-02-21 13:30] VITALS: BP 114/74; PULSE 67
[2020-02-21 13:45] VITALS: BP 111/75; PULSE 66
[2020-02-21 14:00] VITALS: BP 115/79; PULSE 66
== END 2020-02-21 14:15 | disposition home or self-care (01) ==
LOC: EUO 11:05
PROVIDERS: Internal Medicine Gastroenterology
DX: K51.90 Ulcerative colitis, unspecified, without complications (principal); Z79.899 Other long term (current) drug therapy
CPT/HCPCS: J1200; J2930; J3380; J7050

== ENCOUNTER 2020-04-17 11:10 | Outpatient (CLI) | payer BC ==
[~2020-04-17] VITALS: Ht 170.2 cm; Wt 78.7 kg
[~2020-04-17 11:10] MED LIST changes: +WELLBUTRIN 100100 MG PO
[2020-04-17 11:42] LABS: HEMATOCRIT 37.1 % (37.0-47.0); HEMOGLOBIN 12.7 g/dl (12.5-16.0); MEAN CELL VOLUME 93 fl (80.0-100.0); MEAN CORPUSCULAR HEMOGLOBIN 32 pg (27.0-31.0); MEAN CORPUSCULAR HGB CONC 34 g/dl (33.0-37.0); MEAN PLATELET VOLUME 9.2 fl (7.4-10.4); PLATELET COUNT 279 K/mm3 (130-400); RED BLOOD COUNT 3.98 M/mm3 (4.10-5.30); REDCELL DISTRIBUTION WIDTH-CV 14.6 % (11.5-14.5)
[2020-04-17 11:55] LABS: ALBUMIN 4.3 gm/dL (3.5-5.0); BILIRUBIN,TOTAL 0.4 mg/dL (0.0-1.0); CALCIUM 9.6 mg/dL (8.4-10.2); CREATININE, serum 0.69 (0.52-1.25); POTASSIUM 3.8 mmol/L (3.4-5.0); TOTAL PROTEIN 7.4 gm/dL (6.4-8.2)
[2020-04-17] MEDS ORDERED: PAMELOR 25MG25 MG PO (12:47)
[2020-04-17 12:50] VITALS: BP 110/74; PULSE 68; TEMP 98
== END 2020-04-17 13:24 | disposition home or self-care (01) ==
LOC: EUO 11:10
PROVIDERS: Internal Medicine Gastroenterology
DX: K51.90 Ulcerative colitis, unspecified, without complications (principal); Z79.899 Other long term (current) drug therapy
CPT/HCPCS: J1200; J2930; J3380; J7050

== ENCOUNTER 2020-06-12 10:56 | Outpatient (CLI) | payer BC, OTHER ==
[~2020-06-12] VITALS: Ht 170.2 cm; Wt 75.8 kg
[2020-06-12 11:49] LABS: ALBUMIN 4.6 gm/dL (3.5-5.0); BILIRUBIN,TOTAL 0.3 mg/dL (0.0-1.0); CALCIUM 9.3 mg/dL (8.4-10.2); CREATININE, serum 0.68 (0.52-1.25); POTASSIUM 4.3 mmol/L (3.4-5.0); TOTAL PROTEIN 7.9 gm/dL (6.4-8.2)
[2020-06-12 11:49] LABS: HEMOGLOBIN 12.9 g/dl (12.5-16.0); MEAN CELL VOLUME 95 fl (80.0-100.0); MEAN CORPUSCULAR HEMOGLOBIN 33 pg (27.0-31.0); MEAN CORPUSCULAR HGB CONC 35 g/dl (33.0-37.0); MEAN PLATELET VOLUME 9.5 fl (7.4-10.4); PLATELET COUNT 295 K/mm3 (130-400); RED BLOOD COUNT 3.87 M/mm3 (4.10-5.30); REDCELL DISTRIBUTION WIDTH-CV 14.4 % (11.5-14.5)
[2020-06-12 11:53] LABS: HEMATOCRIT 36.8 % (37.0-47.0)
[2020-06-12 12:23] VITALS: BP 108/73; PULSE 71; TEMP 98.5
[2020-06-12] MEDS ORDERED: WELLBUTRIN SR100 M1 PO (12:48)
[2020-06-12 13:20] VITALS: BP 108/65; PULSE 75; TEMP 98.5
== END 2020-06-12 15:21 | disposition home or self-care (01) ==
LOC: EUO 10:56
PROVIDERS: Internal Medicine Gastroenterology
DX: K50.90 Crohn's disease, unspecified, without complications (principal); Z79.899 Other long term (current) drug therapy
CPT/HCPCS: J2920; J3380; J7050

== ENCOUNTER 2020-08-07 11:03 | Outpatient (CLI) | payer BC, OTHER ==
[~2020-08-07] VITALS: Ht 170.2 cm; Wt 75.7 kg
[~2020-08-07 11:03] MED LIST changes: +WELLBUTRIN SR100 M1 PO
[2020-08-07 11:22] LABS: MEAN CELL VOLUME 98 fl (80.0-100.0); MEAN CORPUSCULAR HEMOGLOBIN 33 pg (27.0-31.0); MEAN CORPUSCULAR HGB CONC 34 g/dl (33.0-37.0); PLATELET COUNT 316 K/mm3 (130-400); RED BLOOD COUNT 3.89 M/mm3 (4.10-5.30); REDCELL DISTRIBUTION WIDTH-CV 13.5 % (11.5-14.5)
[2020-08-07 11:35] LABS: ALBUMIN 4.5 gm/dL (3.5-5.0); BILIRUBIN,TOTAL 0.3 mg/dL (0.0-1.0); CREATININE, serum 0.68 (0.52-1.25); TOTAL PROTEIN 7.8 gm/dL (6.4-8.2)
[2020-08-07 11:56] LABS: BASOPHIL 1 % (0-2); EOSINOPHIL 1 % (0-4); LYMPHOCYTE 27 % (20.0-51.0); NEUTROPHILS 63 % (42.0-75.2); PLATELET ESTIMATE NORMAL (NORMAL)
[2020-08-07 13:22] VITALS: BP 113/72; PULSE 81; TEMP 98.7
== END 2020-08-07 13:15 | disposition home or self-care (01) ==
LOC: EUO 11:03
PROVIDERS: Internal Medicine Gastroenterology
DX: K50.90 Crohn's disease, unspecified, without complications (principal); Z79.899 Other long term (current) drug therapy
CPT/HCPCS: J1200; J2930; J3380; J7050

== ENCOUNTER 2020-09-25 11:03 | Outpatient (CLI) | payer BC, OTHER ==
[~2020-09-25] VITALS: Ht 170.2 cm; Wt 75.7 kg
[2020-09-25 11:32] LABS: HEMATOCRIT 37.7 % (37.0-47.0); MEAN CELL VOLUME 96 fl (80.0-100.0); MEAN CORPUSCULAR HEMOGLOBIN 33 pg (27.0-31.0); MEAN CORPUSCULAR HGB CONC 35 g/dl (33.0-37.0); MEAN PLATELET VOLUME 9.2 fl (7.4-10.4); PLATELET COUNT 337 K/mm3 (130-400); RED BLOOD COUNT 3.91 M/mm3 (4.10-5.30)
[2020-09-25 11:44] LABS: ALBUMIN 4.9 gm/dL (3.5-5.0); BILIRUBIN,TOTAL 0.6 mg/dL (0.0-1.0); CALCIUM 9.5 mg/dL (8.4-10.2); CREATININE, serum 0.77 (0.52-1.25); POTASSIUM 3.6 mmol/L (3.4-5.0); TOTAL PROTEIN 8.2 gm/dL (6.4-8.2)
[2020-09-25 12:35] VITALS: BP 121/78; PULSE 76; TEMP 99.2
[2020-09-25 12:47] VITALS: BP 123/83; PULSE 76
[2020-09-25 12:57] VITALS: BP 126/83; PULSE 79; TEMP 99
== END 2020-09-25 13:26 | disposition home or self-care (01) ==
LOC: EUO 11:03
PROVIDERS: Internal Medicine Gastroenterology
DX: K51.90 Ulcerative colitis, unspecified, without complications (principal)
CPT/HCPCS: J1200; J2920; J3380; J7050

== ENCOUNTER 2020-11-27 11:06 | Outpatient (CLI) | payer BC, OTHER ==
[~2020-11-27] VITALS: Ht 170.2 cm; Wt 77.0 kg
[2020-11-27 11:43] LABS: HEMATOCRIT 38.1 % (37.0-47.0); HEMOGLOBIN 13.3 g/dl (12.5-16.0); MEAN CELL VOLUME 95 fl (80.0-100.0); MEAN CORPUSCULAR HEMOGLOBIN 33 pg (27.0-31.0); MEAN CORPUSCULAR HGB CONC 35 g/dl (33.0-37.0); MEAN PLATELET VOLUME 9.4 fl (7.4-10.4); PLATELET COUNT 284 K/mm3 (130-400); RED BLOOD COUNT 4.01 M/mm3 (4.10-5.30); REDCELL DISTRIBUTION WIDTH-CV 13.2 % (11.5-14.5)
[2020-11-27 12:33] LABS: BILIRUBIN,TOTAL 0.3 mg/dL (0.2-1.2); CALCIUM 9.9 mg/dL (8.4-10.2); CREATININE, serum 0.78 mg/dL (0.57-1.11); POTASSIUM 3.8 mmol/L (3.5-4.5); TOTAL PROTEIN 7.8 gm/dL (6.2-8.1)
[2020-11-27 12:36] VITALS: BP 138/91; PULSE 71; TEMP 98.5
== END 2020-11-27 15:15 | disposition home or self-care (01) ==
LOC: EUO 11:06
PROVIDERS: Internal Medicine Gastroenterology
DX: Z79.899 Other long term (current) drug therapy (principal)
CPT/HCPCS: J1200; J2930; J3380; J7050

== ENCOUNTER 2021-01-22 11:23 | Outpatient (CLI) | payer BC, OTHER ==
[~2021-01-22] VITALS: Ht 170.2 cm; Wt 76.2 kg
[2021-01-22 12:09] LABS: HEMATOCRIT 37.6 % (37.0-47.0); MEAN CELL VOLUME 94 fl (80.0-100.0); MEAN CORPUSCULAR HEMOGLOBIN 32 pg (27.0-31.0); MEAN CORPUSCULAR HGB CONC 35 g/dl (33.0-37.0); MEAN PLATELET VOLUME 8.9 fl (7.4-10.4); PLATELET COUNT 291 K/mm3 (130-400); RED BLOOD COUNT 4.02 M/mm3 (4.10-5.30); REDCELL DISTRIBUTION WIDTH-CV 13.1 % (11.5-14.5)
[2021-01-22 12:25] LABS: ALBUMIN 4.3 gm/dL (3.5-5.0); BILIRUBIN,TOTAL 0.4 mg/dL (0.2-1.2); CALCIUM 9.9 mg/dL (8.4-10.2); CREATININE, serum 0.79 mg/dL (0.57-1.11); POTASSIUM 3.8 mmol/L (3.5-4.5); TOTAL PROTEIN 7.4 gm/dL (6.2-8.1)
[2021-01-22 12:30] VITALS: BP 106/71; PULSE 72; TEMP 98.8
[2021-01-22 12:50] LABS: LYMPHOCYTE 32 % (20.0-51.0); NEUTROPHILS 63 % (42.0-75.2); PLATELET ESTIMATE NORMAL (NORMAL)
== END 2021-01-22 19:50 | disposition home or self-care (01) ==
LOC: EUO 11:23
PROVIDERS: Internal Medicine Gastroenterology
DX: Z79.899 Other long term (current) drug therapy (principal)
CPT/HCPCS: J1200; J2930; J3380; J7050

== ENCOUNTER 2021-04-09 11:18 | Outpatient (CLI) | payer BC, OTHER ==
[~2021-04-09] VITALS: Ht 170.2 cm; Wt 77.3 kg
[~2021-04-09 11:18] MED LIST changes: +CALCIUM WITH D31 CTB PO; -OSCAL 500 TAB500 MG PO
[2021-04-09 11:43] LABS: BASO % 0.6 % (0.0-2.0); EOS % 0.8 % (0.0-4.0); GRAN # 3.2 K/mm3 (1.4-6.5); GRAN % 60.4 % (42.2-75.2); HEMATOCRIT 39.3 % (37.0-47.0); HEMOGLOBIN 13.6 g/dl (12.5-16.0); LYMPH # 1.6 K/mm3 (1.2-3.4); LYMPH % 29.9 % (20.0-51.0); MEAN CELL VOLUME 96 fl (80.0-100.0); MEAN CORPUSCULAR HEMOGLOBIN 33 pg (27-31); MEAN CORPUSCULAR HGB CONC 35 g/dl (33.0-37.0); MEAN PLATELET VOLUME 8.9 fl (7.4-10.4); MONO # 0.4 K/mm3 (0.1-0.6); MONO % 8.1 % (1.7-9.3); PLATELET COUNT 321 K/mm3 (130-400); RED BLOOD COUNT 4.11 M/mm3 (4.10-5.30); REDCELL DISTRIBUTION WIDTH-CV 13.4 % (11.5-14.5)
[2021-04-09 12:10] LABS: ALBUMIN 4.7 gm/dL (3.5-5.0); BILIRUBIN,TOTAL 0.7 mg/dL (0.2-1.2); CALCIUM 9.1 mg/dL (8.4-10.2); CREATININE, serum 0.89 mg/dL (0.57-1.11); POTASSIUM 3.8 mmol/L (3.5-4.5); TOTAL PROTEIN 7.9 gm/dL (6.2-8.1)
[2021-04-09 12:24] VITALS: BP 114/73; PULSE 78; TEMP 98.6
== END 2021-04-09 13:20 ==
LOC: EUO 11:18
PROVIDERS: Internal Medicine Gastroenterology
DX: Z79.899 Other long term (current) drug therapy (principal)
CPT/HCPCS: J1200; J2920; J3380; J7050

== ENCOUNTER → 2021-06-05 | Outpatient (CLI) | payer BC, OTHER ==
[~2021-06-05] MED LIST changes: +CRANBERRY250 MG PO; +CYANOCOBAL1000 MCG/M IM; +DIGESTIVE ADVA1 EAC3 PO
== END ==
LOC: COL.RAD 07:26
DX: K50.90 Crohn's disease, unspecified, without complications (principal)
CPT/HCPCS: A9541

== ENCOUNTER 2021-07-30 10:53 | Outpatient (CLI) | payer BC, OTHER ==
[~2021-07-30] VITALS: Ht 170.2 cm; Wt 77.1 kg
[2021-07-30 11:06] VITALS: BP 132/85; PULSE 70; TEMP 98.9
[2021-07-30 11:19] LABS: HEMOGLOBIN 12.2 g/dl (12.5-16.0); MEAN CELL VOLUME 94 fl (80.0-100.0); MEAN CORPUSCULAR HEMOGLOBIN 33 pg (27-31); MEAN CORPUSCULAR HGB CONC 35 g/dl (33.0-37.0); MEAN PLATELET VOLUME 9.5 fl (7.4-10.4); PLATELET COUNT 294 K/mm3 (130-400); RED BLOOD COUNT 3.69 M/mm3 (4.10-5.30); REDCELL DISTRIBUTION WIDTH-CV 13.1 % (11.5-14.5)
[2021-07-30 11:20] LABS: HEMATOCRIT 34.6 % (37.0-47.0)
[2021-07-30] MEDS ORDERED: REGLAN 5MG T5 MG/TAB PO (11:37)
[2021-07-30 11:38] LABS: EOSINOPHIL 3 % (0-4); LYMPHOCYTE 22 % (20.0-51.0); NEUTROPHILS 67 % (42.0-75.2); PLATELET ESTIMATE NORMAL (NORMAL)
[2021-07-30] MEDS ORDERED: MACRODANTIN50 MG/CA1 PO (11:38)
[2021-07-30 11:55] LABS: ALBUMIN 4.1 gm/dL (3.5-5.0); BILIRUBIN,TOTAL 0.4 mg/dL (0.2-1.2); CALCIUM 9.1 mg/dL (8.4-10.2); CREATININE, serum 0.7 mg/dL (0.57-1.11); POTASSIUM 3.4 mmol/L (3.5-4.5); TOTAL PROTEIN 7.4 gm/dL (6.2-8.1)
== END 2021-07-30 15:25 ==
LOC: EUO 10:53
PROVIDERS: Internal Medicine Gastroenterology
DX: K50.90 Crohn's disease, unspecified, without complications (principal); K51.90 Ulcerative colitis, unspecified, without complications
CPT/HCPCS: J1200; J2920; J3380; J7050

== ENCOUNTER 2021-09-24 10:49 | Outpatient (CLI) | payer BC, OTHER ==
[~2021-09-24 10:49] MED LIST changes: +MACRODANTIN50 MG/CA1 PO; +REGLAN 5MG T5 MG/TAB PO
[2021-09-24 11:13] LABS: HEMOGLOBIN 12.7 g/dl (12.5-16.0); MEAN CELL VOLUME 93 fl (80.0-100.0); MEAN CORPUSCULAR HEMOGLOBIN 33 pg (27-31); MEAN CORPUSCULAR HGB CONC 35 g/dl (33.0-37.0); MEAN PLATELET VOLUME 9.3 fl (7.4-10.4); PLATELET COUNT 275 K/mm3 (130-400); RED BLOOD COUNT 3.91 M/mm3 (4.10-5.30); REDCELL DISTRIBUTION WIDTH-CV 13.4 % (11.5-14.5)
[2021-09-24 11:17] LABS: HEMATOCRIT 36.4 % (37.0-47.0)
[2021-09-24 11:32] LABS: ALBUMIN 4.2 gm/dL (3.5-5.0); BILIRUBIN,TOTAL 0.4 mg/dL (0.2-1.2); CALCIUM 9.3 mg/dL (8.4-10.2); CREATININE, serum 0.71 mg/dL (0.57-1.11); POTASSIUM 3.3 mmol/L (3.5-4.5); TOTAL PROTEIN 7.2 gm/dL (6.2-8.1)
[2021-09-24 11:38] VITALS: BP 114/76; PULSE 75; TEMP 98.7
[2021-09-24 11:41] LABS: LYMPHOCYTE 37 % (20.0-51.0); NEUTROPHILS 53 % (42.0-75.2); PLATELET ESTIMATE NORMAL (NORMAL)
[2021-09-24] MEDS ORDERED: VITAMIN D31000 I1 PO (11:43)
[2021-09-24] MEDS ORDERED: ZOFRAN8 MG PO (11:46)
== END 2021-09-24 13:00 | disposition home or self-care (01) ==
LOC: EUO 10:49
PROVIDERS: Internal Medicine Gastroenterology
DX: Z51.81 Encounter for therapeutic drug level monitoring (principal)
CPT/HCPCS: J1200; J2930; J3380; J7050

== ENCOUNTER 2022-05-14 09:04 | Outpatient (CLI) | payer BC, OTHER ==
[~2022-05-14] VITALS: Ht 170.2 cm; Wt 79.3 kg
[~2022-05-14 09:04] MED LIST changes: +VITAMIN D31000 I1 PO; +ZOFRAN8 MG PO
[2022-05-14 09:26] LABS: HEMATOCRIT 38.6 % (37.0-47.0); HEMOGLOBIN 13.4 g/dl (12.5-16.0); MEAN CELL VOLUME 93 fl (80.0-100.0); MEAN CORPUSCULAR HEMOGLOBIN 32 pg (27-31); MEAN CORPUSCULAR HGB CONC 35 g/dl (33.0-37.0); MEAN PLATELET VOLUME 8.7 fl (7.4-10.4); PLATELET COUNT 279 K/mm3 (130-400); RED BLOOD COUNT 4.17 M/mm3 (4.10-5.30); REDCELL DISTRIBUTION WIDTH-CV 13.3 % (11.5-14.5)
[2022-05-14 09:46] LABS: ALBUMIN 4.2 gm/dL (3.5-5.0); BILIRUBIN,TOTAL 0.4 mg/dL (0.2-1.2); CALCIUM 9.5 mg/dL (8.4-10.2); CREATININE, serum 0.84 mg/dL (0.57-1.11); POTASSIUM 4.2 mmol/L (3.5-4.5); TOTAL PROTEIN 7.3 gm/dL (6.2-8.1)
[2022-05-14 09:51] LABS: EOSINOPHIL 1 % (0-4); LYMPHOCYTE 28 % (20.0-51.0); NEUTROPHILS 68 % (42.0-75.2); PLATELET ESTIMATE NORMAL (NORMAL)
[2022-05-14 10:03] VITALS: BP 112/76; PULSE 77; TEMP 98.8
--- NOTE | 2022-05-14 11:56 | NUR ---
pt discharged at approx 1100. pt tolerated her entyvio infusion well, her vs remained wnl during the infusion and she continued to tolerate po fluids throughout. she refused taking benadryl but she did take tylenol and solumederol for her pre-meds. she ambulated independently upon discharge to her car and was free from complaints or concerns.
== END 2022-05-14 11:00 | disposition home or self-care (01) ==
LOC: EUO 09:04
PROVIDERS: Internal Medicine Gastroenterology
DX: K50.80 Crohn's disease of both small and large intestine without complications (principal)
CPT/HCPCS: J2920; J3380; J7050

== ENCOUNTER 2022-07-09 10:04 | Outpatient (CLI) | payer MEDICARE, BC ==
[~2022-07-09] VITALS: Ht 170.2 cm; Wt 80.3 kg
[2022-07-09 10:37] VITALS: BP 134/3; PULSE 73; TEMP 98.6
[2022-07-09 10:42] LABS: BASO % 0.7 % (0.0-2.0); EOS # 0.1 K/mm3 (0.0-0.7); EOS % 0.9 % (0.0-4.0); GRAN # 3.5 K/mm3 (1.4-6.5); GRAN % 63.6 % (42.2-75.2); HEMATOCRIT 41.6 % (37.0-47.0); HEMOGLOBIN 14.3 g/dl (12.5-16.0); LYMPH # 1.4 K/mm3 (1.2-3.4); LYMPH % 25.9 % (20.0-51.0); MEAN CELL VOLUME 93 fl (80.0-100.0); MEAN CORPUSCULAR HEMOGLOBIN 32 pg (27-31); MEAN CORPUSCULAR HGB CONC 34 g/dl (33.0-37.0); MEAN PLATELET VOLUME 9.2 fl (7.4-10.4); MONO # 0.5 K/mm3 (0.1-0.6); MONO % 8.5 % (1.7-9.3); PLATELET COUNT 323 K/mm3 (130-400); RED BLOOD COUNT 4.46 M/mm3 (4.10-5.30); REDCELL DISTRIBUTION WIDTH-CV 12.9 % (11.5-14.5)
[2022-07-09] MEDS ORDERED: REGLAN 10MG10 MG/TAB PO (10:45)
[2022-07-09 11:13] LABS: ALBUMIN 4.3 gm/dL (3.5-5.0); BILIRUBIN,TOTAL 0.7 mg/dL (0.2-1.2); CALCIUM 10.1 mg/dL (8.4-10.2); CREATININE, serum 0.78 mg/dL (0.57-1.11); POTASSIUM 4.2 mmol/L (3.5-4.5); TOTAL PROTEIN 7.9 gm/dL (6.2-8.1)
--- NOTE | 2022-07-09 12:11 | NUR ---
Pt tolerated infusion without issue. IV DC'd, site wrapped with coban. Pt exits dept with steady gait.
== END 2022-07-09 12:12 | disposition home or self-care (01) ==
LOC: EUO 10:04
PROVIDERS: Internal Medicine Gastroenterology
DX: K50.919 Crohn's disease, unspecified, with unspecified complications (principal); K51.90 Ulcerative colitis, unspecified, without complications; K50.80 Crohn's disease of both small and large intestine without complications
CPT/HCPCS: J1200; J2920; J3380; J7050

== ENCOUNTER 2023-02-18 09:46 | Outpatient (CLI) | payer MEDICARE, BC ==
[~2023-02-18 09:46] MED LIST changes: +PRIL40 PO
[2023-02-18 10:24] LABS: HEMATOCRIT 39.6 % (37.0-47.0); HEMOGLOBIN 13.8 g/dl (12.5-16.0); MEAN CELL VOLUME 92 fl (80.0-100.0); MEAN CORPUSCULAR HEMOGLOBIN 32 pg (27-31); MEAN CORPUSCULAR HGB CONC 35 g/dl (33.0-37.0); MEAN PLATELET VOLUME 9.2 fl (7.4-10.4); PLATELET COUNT 316 K/mm3 (130-400); REDCELL DISTRIBUTION WIDTH-CV 13.2 % (11.5-14.5)
[2023-02-18 10:39] LABS: BILIRUBIN,TOTAL 0.6 mg/dL (0.2-1.2); CALCIUM 9.8 mg/dL (8.4-10.2); CREATININE, serum 0.79 mg/dL (0.57-1.11); POTASSIUM 3.7 mmol/L (3.5-4.5); TOTAL PROTEIN 7.2 gm/dL (6.2-8.1)
[2023-02-18 11:30] VITALS: BP 122/77; PULSE 76; TEMP 98.3
== END 2023-02-18 12:12 ==
LOC: EUO 09:46
PROVIDERS: Internal Medicine Gastroenterology
DX: K50.80 Crohn's disease of both small and large intestine without complications (principal)
CPT/HCPCS: J1200; J2920; J3380; J7050

== ENCOUNTER 2023-06-10 09:29 | Outpatient (CLI) | payer MEDICARE, BC ==
[~2023-06-10] VITALS: Ht 170.2 cm; Wt 79.6 kg
[2023-06-10 09:53] VITALS: BP 107/74; PULSE 76; TEMP 98.4
[2023-06-10 09:57] LABS: BASO % 0.3 % (0.0-2.0); EOS # 0.1 K/mm3 (0.0-0.7); EOS % 0.7 % (0.0-4.0); GRAN # 5.1 K/mm3 (1.4-6.5); GRAN % 74.5 % (42.2-75.2); HEMOGLOBIN 13.3 g/dl (12.5-16.0); LYMPH # 1.3 K/mm3 (1.2-3.4); LYMPH % 19.1 % (20.0-51.0); MEAN CELL VOLUME 93 fl (80.0-100.0); MEAN CORPUSCULAR HEMOGLOBIN 33 pg (27-31); MEAN CORPUSCULAR HGB CONC 35 g/dl (33.0-37.0); MEAN PLATELET VOLUME 9.2 fl (7.4-10.4); MONO # 0.4 K/mm3 (0.1-0.6); MONO % 5.1 % (1.7-9.3); PLATELET COUNT 238 K/mm3 (130-400); RED BLOOD COUNT 4.07 M/mm3 (4.10-5.30); REDCELL DISTRIBUTION WIDTH-CV 13.1 % (11.5-14.5)
[2023-06-10 10:10] LABS: ALBUMIN 4.4 g/dL (3.5-5.0); BILIRUBIN,TOTAL 0.6 mg/dL (0.2-1.2); CALCIUM 9.7 mg/dL (8.4-10.2); CREATININE, serum 0.79 mg/dL (0.57-1.11); POTASSIUM 3.6 mEq/L (3.5-4.5); TOTAL PROTEIN 7.6 g/dl (6.2-8.1)
[2023-06-10] MEDS ORDERED: diphenhydrAMINE 50 MG/ML 1 ML VIAL IV ONE (10:30)
[2023-06-10] MEDS ORDERED: Acetaminophen 500 MG TAB PO ONE (10:30)
[2023-06-10] MEDS ORDERED: methylPREDNISolone Sod Succ 40 MG/ML VIAL IV ONE (10:30)
[2023-06-10] MEDS ORDERED: Vedolizumab 300 MG in NS 250 ML IV SCH (11:00)
--- NOTE | 2023-06-10 11:27 | NUR ---
PT TOLERATED INFUSION WELL. VS REMAINED WITHIN NORMAL LIMITS. IV DISCONTINUED AND PT AMBULATED TO [facility] UPON DISCHARGE. NEXT APPOINTMENT MADE.
== END 2023-06-10 11:36 | disposition home or self-care (01) ==
LOC: EUO 09:29
PROVIDERS: Internal Medicine Gastroenterology
DX: K50.80 Crohn's disease of both small and large intestine without complications (principal)
CPT/HCPCS: J1200; J2919; J3380; J7050

== ENCOUNTER 2023-09-30 10:01 | Outpatient (CLI) | payer MEDICARE, BC ==
[~2023-09-30 10:01] MED LIST changes: +AZATHIOPRINE100 MG PO; -IMURAN 50MG TAB50 MG PO
[2023-09-30 10:47] VITALS: BP 106/69; PULSE 75; TEMP 98.6
[2023-09-30 10:48] LABS: BASO % 0.6 % (0.0-2.0); EOS # 0.1 K/mm3 (0.0-0.7); EOS % 1.5 % (0.0-4.0); GRAN # 3.4 K/mm3 (1.4-6.5); GRAN % 64.9 % (42.2-75.2); LYMPH # 1.3 K/mm3 (1.2-3.4); LYMPH % 24.3 % (20.0-51.0); MEAN CELL VOLUME 96 fl (80.0-100.0); MEAN CORPUSCULAR HEMOGLOBIN 33 pg (27-31); MEAN CORPUSCULAR HGB CONC 34 g/dl (33.0-37.0); MEAN PLATELET VOLUME 9.3 fl (7.4-10.4); MONO # 0.4 K/mm3 (0.1-0.6); MONO % 8.5 % (1.7-9.3); PLATELET COUNT 221 K/mm3 (130-400); RED BLOOD COUNT 3.64 M/mm3 (4.10-5.30); REDCELL DISTRIBUTION WIDTH-CV 13.2 % (11.5-14.5)
[2023-09-30 10:51] LABS: HEMATOCRIT 34.9 % (37.0-47.0)
[2023-09-30] MEDS ORDERED: PRIL40 PO (10:58)
[2023-09-30 11:04] LABS: ALBUMIN 4.1 g/dL (3.5-5.0); BILIRUBIN,TOTAL 0.2 mg/dL (0.2-1.2); CALCIUM 9.1 mg/dL (8.4-10.2); CREATININE, serum 0.81 mg/dL (0.57-1.11); POTASSIUM 3.3 mEq/L (3.5-4.5); TOTAL PROTEIN 6.7 g/dl (6.2-8.1)
[2023-09-30] MEDS ORDERED: methylPREDNISolone Sod Succ 40 MG/ML VIAL IV ONE (11:15)
[2023-09-30] MEDS ORDERED: diphenhydrAMINE 50 MG/ML 1 ML VIAL IV ONE (11:15)
[2023-09-30] MEDS ORDERED: Acetaminophen 500 MG TAB PO ONE (11:15)
[2023-09-30] MEDS ORDERED: Vedolizumab 300 MG in NS 250 ML IV SCH (11:45)
--- NOTE | 2023-09-30 12:30 | NUR ---
Pt tolerated infusion without issue. IV DC'd, site wrapped with coban. Pt exits dept with steady gait. Free of complaints at discharge.
== END 2023-09-30 12:30 | disposition home or self-care (01) ==
LOC: EUO 10:01
PROVIDERS: Internal Medicine Gastroenterology
DX: K50.80 Crohn's disease of both small and large intestine without complications (principal)
CPT/HCPCS: J1200; J2919; J3380; J7050

== ENCOUNTER 2023-11-25 10:04 | Outpatient (CLI) | payer MEDICARE, BC ==
[~2023-11-25] VITALS: Ht 170.2 cm; Wt 74.4 kg
[2023-11-25 10:29] VITALS: BP 113/79; PULSE 79; TEMP 99
[2023-11-25 10:32] LABS: BASO % 0.7 % (0.0-2.0); EOS # 0.1 K/mm3 (0.0-0.7); EOS % 0.9 % (0.0-4.0); GRAN # 4.2 K/mm3 (1.4-6.5); GRAN % 73.3 % (42.2-75.2); HEMOGLOBIN 13.3 g/dl (12.5-16.0); LYMPH # 1.1 K/mm3 (1.2-3.4); LYMPH % 19.4 % (20.0-51.0); MEAN CELL VOLUME 91 fl (80.0-100.0); MEAN CORPUSCULAR HEMOGLOBIN 33 pg (27-31); MEAN CORPUSCULAR HGB CONC 37 g/dl (33.0-37.0); MONO # 0.3 K/mm3 (0.1-0.6); MONO % 5.5 % (1.7-9.3); PLATELET COUNT 250 K/mm3 (130-400); RED BLOOD COUNT 3.99 M/mm3 (4.10-5.30)
[2023-11-25 10:34] LABS: HEMATOCRIT 36.1 % (37.0-47.0)
[2023-11-25] MEDS ORDERED: diphenhydrAMINE 50 MG/ML 1 ML VIAL IV ONE (10:45)
[2023-11-25] MEDS ORDERED: methylPREDNISolone Sod Succ 40 MG/ML VIAL IV ONE (10:45)
[2023-11-25 10:48] LABS: ALBUMIN 4.4 g/dL (3.5-5.0); BILIRUBIN,TOTAL 0.6 mg/dL (0.2-1.2); CALCIUM 9.7 mg/dL (8.4-10.2); CREATININE, serum 0.76 mg/dL (0.57-1.11); POTASSIUM 3.7 mEq/L (3.5-4.5); TOTAL PROTEIN 7.4 g/dl (6.2-8.1)
[2023-11-25] MEDS ORDERED: Acetaminophen 500 MG TAB PO ONE (11:00)
[2023-11-25] MEDS ORDERED: Vedolizumab 300 MG in NS 250 ML IV SCH (11:15)
== END 2023-11-25 11:58 | disposition home or self-care (01) ==
LOC: EUO 10:04
PROVIDERS: Internal Medicine Gastroenterology
DX: K50.919 Crohn's disease, unspecified, with unspecified complications (principal)
CPT/HCPCS: J1200; J2919; J3380; J7050